=== PATIENT | female | born 1990 | race Caucasian/White ===

== ENCOUNTER 2016-12-25 16:00 | Inpatient (IN) | payer MEDICAID ==
[~2016-12-25] VITALS: Ht 154.9 cm; Wt 71.8 kg
[2016-12-25 17:41] VITALS: BP 95/58; PULSE 78; Ht 154.9 cm; Wt 71.8 kg
[2016-12-25] MEDS ORDERED: CARBOPROST 250 MCG INJ IM PRN (18:00)
[2016-12-25] MEDS ORDERED: OXYTOCIN 30 UNITS/LR 500 ML IV SCH ×2 (18:00)
[2016-12-25] MEDS ORDERED: MISOPROSTOL 200 MCG TAB PR PRN (18:00)
[2016-12-25] MEDS ORDERED: METHYLERGONOVINE 0.2 MG INJ IM PRN (18:00)
[2016-12-25] MEDS ORDERED: DINOPROSTONE 10 MG VAG SUPP VAG ONE (18:00)
[2016-12-25] MEDS ORDERED: LIDOCAINE 1% (MPF) 30 ML INJ INJ PRN (18:00)
[2016-12-25] MEDS ORDERED: OXYTOCIN 30 UNITS/LR 500 ML IV PRN (18:00)
[2016-12-25] MEDS: LACTATED RINGER'S 1,000 ML IV SCH (18:50)
--- NOTE | 2016-12-25 19:00 | HP ---
Date/Time of Note Date/Time of Note DATE: 12/25/16 TIME: 18:44 OB - History Hx of Present Free Text/Dictation 26-year-old female admitted for elective induction of labor at 40 weeks Last Menstrual Period: Mar 20, 2016 Estimated Due Date: Dec 25, 2016 : 1 Para: 0 Care: Good Care Ultrasounds: Normal mid trimester US Obstetrical Complications: None Medical Complications: None Past Family/Social History * Past Medical, Surgical, Family and Obstetric Histories reviewed from chart. Blood Type: O+ Rubella: immune RPR/VDRL: Negative GBS Status: Negative HBsAG: Negative OB Admission Exam Vital Signs Vital Signs Vital Signs Date Time Temp Pulse Resp B/P Pulse Ox O2 Delivery O2 Flow Rate FiO2 12/25/16 17:41 99.0 78 95/58 Physical Exam HEENT: WNL Heart: Rhythm Normal Lungs: Clear, Equal Abdomen: WNL Extremities: Normal Reflexes: Normal Cervical Dilatation: None Effacement: 0% Station: -3 Membranes: Intact Heart Rate: 140's Accelerations: Accelerations Present Decelerations: No Decelerations Varibility: Marked OB Assessment/Plan Reason for admission: induction of labor Other Assessment: Term gestation Induction Method: per Misoprostol Protocol Other plan: Induction Via Cervidil insertion GIL WALLACE MD Dec 25, 2016 18:57
[2016-12-25 19:18] LABS: BASOPHIL # 0.1 10^3/ul (0.0-0.1); BASOPHILS % 0.6 % (0.0-2.0); EOSINOPHILS # 0.1 10^3/ul (0.0-0.5); EOSINOPHILS % 0.9 % (0.0-7.0); HEMATOCRIT 35.7 % (37.0-47.0); HEMOGLOBIN 12.4 g/dl (12.0-16.0); LYMPHOCYTES # 3.5 10^3/ul (0.8-2.9); LYMPHOCYTES % 28.8 % (15.0-51.0); MEAN CORPUSCULAR HEMOGLOBIN 31.2 pg (29.0-33.0); MEAN CORPUSCULAR HGB CONC 34.7 g/dl (32.0-37.0); MEAN CORPUSCULAR VOLUME 89.9 fl (82.0-101.0); MEAN PLATELET VOLUME 8.8 fl (7.4-10.4); MONOCYTE # 0.9 10^3/ul (0.3-0.9); NEUTROPHIL # 7.5 10^3/ul (1.6-7.5); NEUTROPHILS % 61.2 % (39.0-77.0); PLATELET COUNT 349 10^3/UL (140-415); RED BLOOD COUNT 3.97 10^6/ul (4.20-5.40); RED CELL DISTRIBUTION WIDTH 13.2 % (11.5-14.5); WHITE BLOOD COUNT 12.2 10^3/ul (4.8-10.8)
[2016-12-25 19:35] LABS: INR 0.92; PARTIAL THROMBOPLASTIN TIME 27.4 Sec (25.0-35.0); PROTIME 12.4 Sec (12.2-14.2)
[2016-12-25] MEDS ORDERED: MINERAL OIL LIGHT 10 ML VIAL TOP PRN (20:00)
[2016-12-25 20:02] LABS: BARBITURATES Negative (NEGATIVE); BENZODIAZEPINES Negative (NEGATIVE); CANNABINOIDS Negative (NEGATIVE); COCAINE Negative (NEGATIVE); OPIATES Negative (NEGATIVE)
[2016-12-25] MEDS ORDERED: LACTATED RINGER'S 1,000 ML IV PRN (21:00)
[2016-12-26] MEDS: LACTATED RINGER'S 1,000 ML IV SCH ×4 (00:09→20:53)
[2016-12-26] MEDS: BUTORPHANOL 2 MG INJ IV PRN (05:52)
--- NOTE | 2016-12-26 15:51 | RADRPT ---
PROCEDURE: US biophysical profile. CLINICAL INDICATION: cardiac deceleration. TECHNIQUE: Multiple sonographic images of the uterus were obtained. The images were revi ewed on a PACS workstation. COMPARISON: No prior studies are available for comparison. FINDINGS: There is a single live intrauterine gestation. heart rate is 128 beats per minute. The position is cephalic. The placenta is posterior grade II with no abruption or previa. The CAYDEN is 19.7 cm. (Normal = 5-20 cm.) Breathing Movement: 2 Gross Body Movement: 2 Tone: 2 Qualitative Amniotic Fluid Volume: 2 TOTAL: 8 IMPRESSION: 1. The biophysical score is 8/8. RPTAT: QQ .Lei Oconnor MD, MD Date Time Electronically viewed and signed by .Lei Oconnor MD, on 12/26/2016 15:42 .R/
--- NOTE | 2016-12-26 16:00 | RADRPT ---
PROCEDURE: US OB. CLINICAL INDICATION: cardiac deceleration. TECHNIQUE: Multiple sonographic images of the uterus were obtained. The images were revi ewed on a PACS workstation. COMPARISON: No prior studies are available for comparison. FINDINGS: There is a single live intrauterine gestation. heart rate is 128 beats per minute. Measurements were made in order to determine age. The results are as follows: BPD = 9.72 cm. HC = 34.47 cm. AC = 34.66 cm. FL = 7.64 cm. Estimated weight is 3650 +/- 548 grams. LMP growth percentile is 51 %. Menstrual age by ultrasound dates is 39 weeks 2 days. The estimated date of delivery is 12/31/2016. Position is cephalic and placenta is posterior grade II. There is no evidence for an abruption or pl acenta previa. IMPRESSION: 1. Single live intrauterine gestation of 39 weeks 2 days menstrual age by ultrasound dates. 2. The estimated date of delivery is 12/31/2016. RPTAT: QQ .Lei Oconnor MD, MD Date Time Electronically viewed and signed by .Lei Oconnor MD, on 12/26/2016 16:00 .R/
--- NOTE | 2016-12-26 18:03 | PN ---
Date/Time of Note Date/Time of Note DATE: 12/26/16 TIME: 18:02 OB Subjective Subjective Subjective Complaint of uterine contractions OB Objective Objective Objective Vital signs are stable General physical exam is unchanged Cervix is 50% fingertip to 1 cm Patient earlier had variable deceleration of the 50s which resolved by repositioning the patient OB Assessment/Plan Reason for admission: induction of labor Other Assessment: Term gestation Other plan: Consider starting patient on Pitocin after Cervidil insertion pending examination of the cervix GIL WALLACE MD Dec 26, 2016 18:03
[2016-12-26] MEDS ORDERED: OXYTOCIN 30 UNITS/LR 500 ML IV SCH (20:30)
[2016-12-27] MEDS: BUTORPHANOL 2 MG INJ IV PRN ×2 (00:21→02:48)
[2016-12-27] MEDS: LACTATED RINGER'S 1,000 ML IV SCH ×2 (03:58→07:48)
[2016-12-27] MEDS ORDERED: CITRIC ACID/NA CITRATE 30 ML CUP ONE (04:27)
[2016-12-27] MEDS ORDERED: ONDANSETRON 4 MG INJ ONE (04:28)
[2016-12-27] MEDS ORDERED: LACTATED RINGER'S 1,000 ML IV ONE (04:48)
[2016-12-27] MEDS ORDERED: FENTAnyl 2MCG/ML-ROPIV 0.2% 100 ML ONE (04:56)
[2016-12-27] MEDS ORDERED: NALBUPHINE HCL (10 MG/1 ML) INJ IV PRN (05:00)
[2016-12-27] MEDS ORDERED: NALOXONE (0.4 MG/ML) INJ IV PRN (05:00)
[2016-12-27] MEDS ORDERED: ONDANSETRON 4 MG INJ IV PRN (05:00)
[2016-12-27] MEDS ORDERED: ONDANSETRON 4 MG INJ IV ONE (05:00)
[2016-12-27] MEDS ORDERED: DIPHENHYDRAMINE 50 MG INJ IV PRN (05:00)
[2016-12-27] MEDS ORDERED: TRIMETHOBENZAMIDE 100 MG/ML VIAL IM PRN (05:00)
[2016-12-27] MEDS ORDERED: morphine 2 MG INJ IV PRN (05:00)
[2016-12-27] MEDS ORDERED: CITRIC ACID/NA CITRATE 30 ML CUP PO ONE (05:00)
[2016-12-27] MEDS ORDERED: FENTAnyl 2MCG/ML-ROPIV 0.2% 100 ML BAG EPI SCH (05:00)
[2016-12-27] MEDS ORDERED: KETOROLAC 30 MG INJ IV PRN (05:00)
[2016-12-27] MEDS ORDERED: SILVER NITRATE SWAB TOP ONE (14:00)
--- NOTE | 2016-12-27 14:17 | LDN ---
Date/Time of Note Date/Time of Note DATE: 12/27/16 TIME: 14:15 Delivery Summary pt pushed and delivered vaible infant/ loose CANx1 Placenta Delivered: Spontaneously Meconium: none Episiotomy: No Laceration repair: 2nd degree laceration repaired with 2-0 and 3-0 vicryl chromic Anesthesia type: Epidural Estimated blood loss: 250 Sponge & Needle done & correct: Yes All needle counts correct: Yes Any foreign bodies felt in the: No Problems: Delivery Information Sex Infant Sex: male Suctioning Nose & mouth suctioned at finn: Yes Umbilical Cord Umbilical cord with: 3 Vessels Cord presentations: nuchal cord Nuchal cord present X: 1 Cord Blood was obtained: Yes MIKAYLA BEACH MD Dec 27, 2016 14:17
[2016-12-27] MEDS: OXYTOCIN 30 UNITS/LR 500 ML IV SCH ×2 (16:26→20:26)
[2016-12-27] MEDS ORDERED: HYDROCODONE/APAP (5/325) TAB PO PRN (16:30)
[2016-12-27] MEDS ORDERED: DIBUCAINE 1% 30 GM OINT PR PRN (16:30)
[2016-12-27] MEDS ORDERED: WITCH HAZEL/GLYCERIN PAD PR PRN (16:30)
[2016-12-27] MEDS ORDERED: ACETAMINOPHEN 325 MG TAB PO PRN (16:30)
[2016-12-27] MEDS ORDERED: OXYTOCIN 30 UNITS/LR 500 ML IV PRN (16:30)
[2016-12-27] MEDS ORDERED: CARBOPROST 250 MCG INJ IM PRN (16:30)
[2016-12-27] MEDS ORDERED: METHYLERGONOVINE 0.2 MG INJ IM PRN (16:30)
[2016-12-27] MEDS ORDERED: BENZOCAINE 20% 56 ML SPRAY TOP PRN (16:30)
[2016-12-27] MEDS ORDERED: MISOPROSTOL 200 MCG TAB PR PRN (16:30)
[2016-12-27 16:45] VITALS: BP 108/51; PULSE 55; RESP 18
[2016-12-27] MEDS: IBUPROFEN 600 MG TAB PO SCH (18:04)
[2016-12-27] MEDS: CEPHALEXIN 500 MG CAP PO SCH (18:04)
[2016-12-27] MEDS: LACTATED RINGER'S 1,000 ML IV* SCH (18:14)
[2016-12-27 19:30] VITALS: BP 107/68; PULSE 70; RESP 19
[2016-12-27] MEDS: SENNA/DOCUSATE NA (8.6MG/50MG) TAB PO SCH (20:50)
[2016-12-28] MEDS: CEPHALEXIN 500 MG CAP PO SCH ×5 (00:16→23:56)
[2016-12-28] MEDS: IBUPROFEN 600 MG TAB PO SCH ×5 (00:16→23:57)
[2016-12-28] MEDS: LACTATED RINGER'S 1,000 ML IV* SCH (00:26)
[2016-12-28 04:00] VITALS: BP 101/59; PULSE 66; RESP 19
[2016-12-28 08:40] VITALS: BP 91/50; PULSE 66; RESP 18
[2016-12-28] MEDS: SENNA/DOCUSATE NA (8.6MG/50MG) TAB PO SCH ×2 (08:43→20:30)
[2016-12-28 10:57] LABS: BASOPHIL # 0.1 10^3/ul (0.0-0.1); BASOPHILS % 0.3 % (0.0-2.0); EOSINOPHILS # 0.1 10^3/ul (0.0-0.5); EOSINOPHILS % 0.3 % (0.0-7.0); HEMATOCRIT 28.9 % (37.0-47.0); HEMOGLOBIN 9.5 g/dl (12.0-16.0); LYMPHOCYTES # 2.6 10^3/ul (0.8-2.9); LYMPHOCYTES % 13.9 % (15.0-51.0); MEAN CORPUSCULAR HEMOGLOBIN 29.6 pg (29.0-33.0); MEAN CORPUSCULAR HGB CONC 32.9 g/dl (32.0-37.0); MEAN PLATELET VOLUME 9.3 fl (7.4-10.4); MONOCYTES % 5.5 % (0.0-11.0); NEUTROPHIL # 14.8 10^3/ul (1.6-7.5); NEUTROPHILS % 79.1 % (39.0-77.0); PLATELET COUNT 263 10^3/UL (140-415); RED BLOOD COUNT 3.21 10^6/ul (4.20-5.40); RED CELL DISTRIBUTION WIDTH 13.2 % (11.5-14.5); WHITE BLOOD COUNT 18.7 10^3/ul (4.8-10.8)
--- NOTE | 2016-12-28 15:37 | DS ---
Date/Time of Note Date/Time of Note Home next day DATE: 12/28/16 TIME: 15:34 Obstetrical Discharge Record Final Diagnosis Final Diagnosis: Term delivered Other Final Diagnosis Status post vaginal delivery Vaginal Delivery Obstetrical Delivery: Spontaneous, Laceration, Repaired Complications Augmentation: Yes Induction: Yes Condition on Discharge Physical Assessment Last Vitals: See nurse's notes Voiding: Yes Bowel Movement: Yes Breast: Soft, non-tender, Filling Fundus: Firm Abdomen and Incision: Abdomen is soft bowel sounds present fundus is firm Episiotomy: Perineum is healing Calf Tenderness: No Patient Condition: Good GIL WALLACE MD Dec 28, 2016 15:37
[2016-12-28] MEDS ORDERED: IBUP-1542 PO (15:45)
--- NOTE | 2016-12-28 15:45 | PD.PPDC ---
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
[2016-12-28 16:00] VITALS: BP 92/52; PULSE 75; RESP 18
[2016-12-28 20:15] VITALS: BP 88/60; PULSE 70; RESP 18
[2016-12-29 03:59] VITALS: BP 85/50; PULSE 64; RESP 18
[2016-12-29] MEDS: CEPHALEXIN 500 MG CAP PO SCH ×3 (05:31→18:05)
[2016-12-29] MEDS: IBUPROFEN 600 MG TAB PO SCH ×3 (05:31→18:05)
[2016-12-29 08:00] VITALS: BP 97/54; PULSE 62; RESP 18
--- NOTE | 2016-12-29 08:00 | OPPN ---
Date/Time of Note Date/Time of Note DATE: 12/29/16 TIME: 07:57 Anesthesia Follow up Anesthesia Follow up Last documented vital signs Vital Signs Date Time Temp Pulse Resp B/P Pulse Ox O2 Delivery O2 Flow Rate FiO2 12/29/16 03:59 98.0 64 18 85/50 Room Air Respiratory function: WNL Cardiovascular function: WNL Comments Pt is 26 yo F POD 2 s/p with labor epidural for analgesia. Pt is VSS, A& Ox3, doing well, tolerating ADLs, tolerating po, ambulating. Pt c/o mild back soreness at epidural site, no erythema, no TTP, no exudate. On exam, no gross weakness or numbness appreciated BLE. Discussed with patient that soreness at epidural site should resolve. EL FOREMAN MD Dec 29, 2016 08:00
[2016-12-29] MEDS: SENNA/DOCUSATE NA (8.6MG/50MG) TAB PO SCH (09:44)
[2016-12-29 10:41] LABS: BASOPHILS % 0.4 % (0.0-2.0); EOSINOPHILS # 0.1 10^3/ul (0.0-0.5); EOSINOPHILS % 0.7 % (0.0-7.0); HEMATOCRIT 29.5 % (37.0-47.0); HEMOGLOBIN 9.7 g/dl (12.0-16.0); LYMPHOCYTES # 2.1 10^3/ul (0.8-2.9); LYMPHOCYTES % 19.6 % (15.0-51.0); MEAN CORPUSCULAR HEMOGLOBIN 29.8 pg (29.0-33.0); MEAN CORPUSCULAR HGB CONC 32.9 g/dl (32.0-37.0); MEAN CORPUSCULAR VOLUME 90.5 fl (82.0-101.0); MEAN PLATELET VOLUME 9.2 fl (7.4-10.4); MONOCYTE # 0.6 10^3/ul (0.3-0.9); NEUTROPHILS % 73.6 % (39.0-77.0); PLATELET COUNT 286 10^3/UL (140-415); RED BLOOD COUNT 3.26 10^6/ul (4.20-5.40); RED CELL DISTRIBUTION WIDTH 13.4 % (11.5-14.5); WHITE BLOOD COUNT 10.9 10^3/ul (4.8-10.8)
[2016-12-29 16:00] VITALS: BP 97/54; PULSE 62; RESP 16
== END 2016-12-29 18:15 | disposition home or self-care (01) | DRG 775 ==
LOC: L-D 17:13 → PP1 12-27 16:42
PROVIDERS: ADMIT Obstetrics & Gynecology; ATTEND Obstetrics & Gynecology
PROC: 10E0XZZ Delivery of Products of Conception, External Approach (ICD-10-PCS; principal; 2016-12-27)
PROC: 3E0P7VZ Introduction of Hormone into Female Reproductive, Via Natural or Artificial Opening (ICD-10-PCS; 2016-12-27)
PROC: 3E0P3VZ Introduction of Hormone into Female Reproductive, Percutaneous Approach (ICD-10-PCS; 2016-12-27)
DX: O70.1 Second degree perineal laceration during delivery (principal); Z37.0 Single live birth; Z3A.40 40 weeks gestation of pregnancy
CPT/HCPCS: 62319; 76815; 76818; 80307; 85025; 85610; 85730; 86592; 86900; 86901; 87340; J0595; J2405; J2590; J3010; J7120